=== PATIENT | female | born 1960 | race Caucasian/White ===

== ENCOUNTER 2020-03-19 10:36 | Emergency (ER) | payer BC ==
[2020-03-19] MEDS ORDERED: Nitroglycerin 0.4 MG Tab.SL SL PRN (10:47)
[2020-03-19] MEDS ORDERED: Morphine 4 MG/ML Syringe IVPUSH PRN (10:47)
[2020-03-19] MEDS ORDERED: Aspirin 81 MG Tab.Chew PO ONE (10:47)
[2020-03-19] MEDS ORDERED: Sodium Chloride 0.9% 10 ML Syringe FLUSH PRN (10:47)
[2020-03-19] MEDS ORDERED: Alum Hydrox/Mag Hydrox/Simeth 15 ML, Lidocaine 2% 15 ML PO ONE ×2 (10:48)
--- NOTE | 2020-03-19 10:51 | EDM.PDOC ---
ED HPI GENERAL MEDICAL PROBLEM - General Chief Complaint: Chest Pain Stated Complaint: STOMACH PAIN GOES INTO THE BACK Time Seen by Provider: 03/19/20 10:47 Source of Information: Reports: Patient, RN Notes Reviewed History Limitations: Reports: No Limitations - History of Present Illness INITIAL COMMENTS - FREE TEXT/NARRATIVE: 59-year-old female presents emergency department with a complaint of epigastric pain, she states it come on today about 30 minutes after eating breakfast is very intense goes all the way across her chest into her back rates her pain 10 out of 10 it has subsided now to 8 out of 10. She did feel nauseated with the intense pain no shortness of breath no diaphoresis. No history of coronary artery disease both mother and father had cardiac events in their 70s. She states she has no diabetes no hypertension no dyslipidemia. Epigastric Pain Score (Numeric/FACES): 9 - Related Data Allergies Allergy/AdvReac Type Severity Reaction Status Date / Time No Known Allergies Allergy Verified 03/19/20 10:45 Home Meds: Home Meds NK [No Known Home Meds] 03/19/20 [History] Past Medical History - Past Health History Medical/Surgical History: Denies Medical/Surgical History Social & Family History - Tobacco Use Tobacco Use Status *Q: Never Tobacco User - Caffeine Use Caffeine Use: Reports: None - Recreational Drug Use Recreational Drug Use: No ED ROS GENERAL - Review of Systems Review Of Systems: See Below Constitutional: Denies: Diaphoresis HEENT: Reports: No Symptoms Respiratory: Reports: No Symptoms Cardiovascular: Reports: Chest Pain GI/Abdominal: Reports: Abdominal Pain (Epigastric), Nausea. Denies: Vomiting : Reports: No Symptoms ED EXAM, GENERAL - Physical Exam Exam: See Below Exam Limited By: No Limitations General Appearance: Alert, Mild Distress Respiratory/Chest: No Respiratory Distress, Lungs Clear, Normal Breath Sounds, No Accessory Muscle Use, Chest Non-Tender Cardiovascular: Regular Rate, Rhythm, No Murmur GI/Abdominal: Normal Bowel Sounds, Soft, Tender (Tender epigastric region) Extremities: No Pedal Edema Course - Vital Signs Last Recorded V/S: Last Vital Signs Temp 96.8 F L 03/19/20 10:47 Pulse 66 03/19/20 12:21 Resp 16 03/19/20 12:21 BP 105/64 03/19/20 12:21 Pulse Ox 99 03/19/20 12:21 - Orders/Labs/Meds Orders: Active Orders 24 hr Category Date Time Status Cardiac Monitoring [RC] .As Directed Care 03/19/20 10:47 Active EKG Documentation Completion [RC] ASDIRECTED Care 03/19/20 10:48 Active Peripheral IV Care [RC] . DIRECTED Care 03/19/20 10:48 Active Morphine Med 03/19/20 10:47 Active 4 mg IVPUSH Q10M PRN Nitroglycerin [Nitrostat] Med 03/19/20 10:47 Active 0.4 mg SL Q5M PRN Sodium Chloride 0.9% [Saline Flush] Med 03/19/20 10:47 Active 10 ml FLUSH ASDIRECTED PRN Peripheral IV Insertion Adult [OM.PC] Stat Oth 03/19/20 10:47 Ordered Saline Lock Insert [OM.PC] Stat Oth 03/19/20 10:47 Ordered EKG 12 Lead [EK] Stat Ther 03/19/20 10:48 Ordered Medication Orders Morphine Sulfate (Morphine) 4 mg IVPUSH Q10M PRN PRN Reason: Chest Pain Stop: 03/20/20 10:48 Nitroglycerin (Nitrostat) 0.4 mg SL Q5M PRN PRN Reason: Chest Pain Stop: 03/20/20 10:48 Last Admin: 03/19/20 11:15 Dose: 0.4 mg Documented by: [id number] Sodium Chloride (Saline Flush) 10 ml FLUSH ASDIRECTED PRN PRN Reason: Keep Vein Open Last Admin: 03/19/20 11:11 Dose: 10 ml Documented by: [email or web address] Labs: Laboratory Tests 03/19/20 03/19/20 03/19/20 Range/Units 11:10 11:10 11:10 WBC 8.3 (4.5-11.0) K/uL RBC 4.15 (3.30-5.50) M/uL Hgb 13.5 (12.0-15.0) g/dL Hct 40.0 (36.0-48.0) % MCV 96 (80-98) fL MCH 33 H (27-31) pg MCHC 34 (32-36) % Plt Count 245 (150-400) K/uL Neut % (Auto) 72 H (36-66) % Lymph % (Auto) 20 L (24-44) % Jessamine % (Auto) 7 H (2-6) % Eos % (Auto) 1 L (2-4) % Baso % (Auto) 0 (0-1) % Sodium 139 L (140-148) mmol/L Potassium 4.6 (3.6-5.2) mmol/L Chloride 103 (100-108) mmol/L Carbon Dioxide 28 (21-32) mmol/L Anion Gap 12.6 (5.0-14.0) mmol/L BUN 15 (7-18) mg/dL Creatinine 1.0 (0.6-1.0) mg/dL Est Cr Clr Drug Dosing 52.95 mL/min Estimated GFR (MDRD) 57 L (>60) Glucose 130 H (74-106) mg/dL Lactic Acid 2.4 H (0.4-2.0) mmol/L Calcium 9.3 (8.5-10.1) mg/dL Total Bilirubin 0.5 (0.2-1.0) mg/dL AST 22 (15-37) U/L ALT 30 (12-78) U/L Alkaline Phosphatase 100 (46-116) U/L Troponin I < 0.017 (0.000-0.056) ng/mL Total Protein 6.8 (6.4-8.2) g/dL Albumin 3.6 (3.4-5.0) g/dL Globulin 3.2 (2.3-3.5) g/dL Albumin/Globulin Ratio 1.1 L (1.2-2.2) Lipase 310 (73-393) U/L 03/19/20 Range/Units 13:00 WBC (4.5-11.0) K/uL RBC (3.30-5.50) M/uL Hgb (12.0-15.0) g/dL Hct (36.0-48.0) % MCV (80-98) fL MCH (27-31) pg MCHC (32-36) % Plt Count (150-400) K/uL Neut % (Auto) (36-66) % Lymph % (Auto) (24-44) % Jessamine % (Auto) (2-6) % Eos % (Auto) (2-4) % Baso % (Auto) (0-1) % Sodium (140-148) mmol/L Potassium (3.6-5.2) mmol/L Chloride (100-108) mmol/L Carbon Dioxide (21-32) mmol/L Anion Gap (5.0-14.0) mmol/L BUN (7-18) mg/dL Creatinine (0.6-1.0) mg/dL Est Cr Clr Drug Dosing mL/min Estimated GFR (MDRD) (>60) Glucose (74-106) mg/dL Lactic Acid (0.4-2.0) mmol/L Calcium (8.5-10.1) mg/dL Total Bilirubin (0.2-1.0) mg/dL AST (15-37) U/L ALT (12-78) U/L Alkaline Phosphatase (46-116) U/L Troponin I < 0.017 (0.000-0.056) ng/mL Total Protein (6.4-8.2) g/dL Albumin (3.4-5.0) g/dL Globulin (2.3-3.5) g/dL Albumin/Globulin Ratio (1.2-2.2) Lipase (73-393) U/L Meds: Medications Generic Name Dose Route Start Last Admin Trade Name Freq PRN Reason Stop Dose Admin Morphine Sulfate 4 mg 03/19/20 10:47 Morphine IVPUSH 03/20/20 10:48 Q10M PRN Chest Pain Nitroglycerin 0.4 mg 03/19/20 10:47 03/19/20 11:15 Nitrostat SL 03/20/20 10:48 0.4 mg Q5M PRN Administration Chest Pain Sodium Chloride 10 ml 03/19/20 10:47 03/19/20 11:11 Saline Flush FLUSH 10 ml ASDIRECTED PRN Administration Keep Vein Open Discontinued Medications Generic Name Dose Route Start Last Admin Trade Name Freq PRN Reason Stop Dose Admin Aspirin 324 mg 03/19/20 10:47 03/19/20 10:52 Aspirin PO 03/19/20 10:48 324 mg ONETIME ONE Administration Al Hydroxide/Mg Hydroxide 15 0 ml 03/19/20 10:48 03/19/20 10:52 ml/ Lidocaine HCl 15 ml PO 03/19/20 10:49 15 ml ONETIME ONE Administration - Re-Assessments/Exams Free Text/Narrative Re-Assessment/Exam: 03/19/20 12:24 Heart score of 1 Departure - Departure Time of Disposition: 14:02 Disposition: Home, Self-Care 01 Condition: Fair Clinical Impression: Epigastric pain Instructions: Food Choices for Gastroesophageal Reflux Disease, Adult, [id number], Gastroesophageal Reflux Disease, Adult, [id number] Referrals: PCP,None [Primary Care Provider] - Forms: ED Department Discharge Additional Instructions: Try one of the [id number] medications for reflux symptomology, please followup with your primary care provider upon return home, please call return to the emergency department with worsening of symptoms. Sepsis Event Note (ED) - Evaluation Sepsis Screening Result: No Definite Risk - Focused Exam Vital Signs: Vital Signs Temp Pulse Resp BP BP Pulse Ox 03/19/20 12:21 66 16 105/64 99 03/19/20 11:15 134/78 03/19/20 10:47 96.8 F L 63 23 H 125/90 100 - My Orders Last 24 Hours: My Active Orders 03/19/20 10:47 Cardiac Monitoring [RC] .As Directed Morphine 4 mg IVPUSH Q10M PRN Nitroglycerin [Nitrostat] 0.4 mg SL Q5M PRN Sodium Chloride 0.9% [Saline Flush] 10 ml FLUSH ASDIRECTED PRN Peripheral IV Insertion Adult [OM.PC] Stat Saline Lock Insert [OM.PC] Stat 03/19/20 10:48 EKG Documentation Completion [RC] ASDIRECTED Peripheral IV Care [RC] . DIRECTED EKG 12 Lead [EK] Stat - Assessment/Plan Last 24 Hours: My Active Orders 03/19/20 10:47 Cardiac Monitoring [RC] .As Directed Morphine 4 mg IVPUSH Q10M PRN Nitroglycerin [Nitrostat] 0.4 mg SL Q5M PRN Sodium Chloride 0.9% [Saline Flush] 10 ml FLUSH ASDIRECTED PRN Peripheral IV Insertion Adult [OM.PC] Stat Saline Lock Insert [OM.PC] Stat 03/19/20 10:48 EKG Documentation Completion [RC] ASDIRECTED Peripheral IV Care [RC] . DIRECTED EKG 12 Lead [EK] Stat Plan: Assessment Acuity = acute Site and laterality = epigastric abdominal pain Etiology = probably refluxed symptomology Manifestations = none Location of injury = Home Lab values = CBC CMP unremarkable troponin was negative x2 lactic acid slightly elevated to 2.4 consistent lactic acidosis, EKG demonstrates sinus rhythm no ST elevations or depressions, chest x-ray reveals no acute process Plan I did review lab work EKG chest x-ray results with her plan is she is going to try one of the [id number] medications and follow-up with her primary care upon return This note was dictated using [employer] voice recognition software please call with any questions on syntax or grammar.
--- NOTE | 2020-03-19 11:29 | CR ---
CHEST: Portable 03/19/2020 at 11:08 AM CLINICAL HISTORY:Chest pain COMPARISON:None FINDINGS: The heart size, pulmonary vascularity and hilar structures are normal. No infiltrate effusion or pneumothorax is seen. IMPRESSION: No acute cardiopulmonary process
== END 2020-03-19 14:09 | disposition home or self-care (01) ==
LOC: JP.ED 10:36
DX: R10.13 Epigastric pain (principal)
CPT/HCPCS: 36415; 71045; 80053; 83605; 83690; 84484; 85025; 93005; 99284; A9270